=== PATIENT | female | born 1990 | race African-American/Black ===

== ENCOUNTER 2017-09-24 16:11 | Emergency (ER) | payer OTHER ==
[~2017-09-24] VITALS: Ht 185.4 cm; Wt 67.0 kg
[2017-09-24 16:46] VITALS: BP 124/76; PULSE 66; TEMP 98; O2SAT 100
--- NOTE | 2017-09-24 17:24 | PD ---
History of Present Illness Chief Complaint: Psychiatric Symptoms Time Seen by Provider: 17:00 Travel History International Travel<30 Days: No Contact w/Intl Traveler<30days: No Known affected area: No Legal Status Legal Status: Involuntary Christopher Act Signed By: Christopher Act Comment: Pete Spears MD History of Present Illness: 26 year old,single, female with no reported psychiatric history presents as a transfer from [facility] on an involuntary status. The Christopher act alleges that the patient was found running in the [facility] naked. Patient provides the following account of events. On she left [facility] after she had an argument with her sister whom she had been living with. She took a plane to [place] where she is originally from. After arriving in [place] she spent a day "wandering around the airport trying to figure out what I wanted to do and to get my head straight. I then decided to walk home. While walking I began to feel panicky and felt like I was in danger so I ran into the white and while in the white something told me to drop everything. Saw I put my purse and phone down and I took my clothes off. I then felt better." Patient denies any previous psychiatric history. She denies any use of any substances. Patient is seen in [facility]. She is alert, oriented, dressed in hospital [facility]. Her speech is somewhat circumstantial and overinclusive. Not pressured. She denies any hallucinations, denies any delusions or paranoia. She denies any suicidal or homicidal ideation, intent or plan her mood is rather euthymic. She does not appear to be concerned with her previous actions or the fact that she is here now in this hospital under a Christopher act. Telephone call to her mother Pushpa at [phone] to obtain collateral. No answer. Telephone call to her sister at [phone]. No answer. Generic message left on both to call [facility]. Patient's mother returned my call at [phone]. Mother states that the patient has never had any previous episodes and verified that indeed patient had been living in [place]. She spoke with her during the week and patient presented no unusual behaviors. Mother is out of the country but she will have her oldest son Marybeth pick the patient up if she is discharged. Remarks Frankie seen again on September 25, 2017 . Patient slept last night. This morning she is alert, oriented. Speech is clear and logical. Decreased circumstantiality. I met with patient's brother, Marybeth who is here to bring frankie home. He has spoken with his mother who is returning on Tuesday. He tells me that the patient appears to him to be at baseline. He has no concerns for her . I have instructed the patient and family to seek psychiatric care if any symptoms return including lack of sleep. The patient is not psychotic, not manic. No suicidal or homicidal ideation, intent or plan. She has a safe discharge plan at this time. The BA is lifted. PFSH Past Medical History ?: Not Psychiatric History Psychiatric History Hx Psychiatric Treatment: Denies any previous History of Inpatient Treatment: No Guns or firearms in home: No Social History Born and raised in [place]. Completed a master's degree in social work [place] [employer] [place]. Hx Alcohol Use: No Hx Tobacco Use: No Hx Substance Use: No Hx of Substance Use Treatment: No Allergies-Medications (Allergen,Severity, Reaction): Coded Allergies: No Known Allergies (Verified Allergy, Unknown, 09/25/17) Review of Systems Psychiatric: DENIES: Anxiety, Confusion, Mood changes, Depression, Hallucinations, Agitation, Suicidal Ideation, Homicidal Ideation, Delusions Except as stated in HPI: all other systems reviewed are Neg Mental Status Examination Appearance: Appropriate Consciousness: Alert Orientation: x4 Motor Activity: Normal gait Speech: Other (Overinclusive) Language: Adequate Fund of Knowledge: Adequate Attention and Concentration: Adequate Memory: Unremarkable Affect: Appropriate Thought Process & Associations: Intact, Logical Thought Content: Appropriate Hallucination Type: None Delusion Type: None Suicidal Ideation: No Suicidal Plan: No Suicidal Intention: No Homicidal Ideation: No Homicidal Plan: No Homicidal Intention: No Insight: Poor Judgment: Impulsive MDM Medical Decision Making Medical Record Reviewed: Yes Assessment/Plan 26-year-old female with no reported psychiatric history, no history of substance use, who is brought in under Christopher act after she was found walking around naked. The patient at this present time denies any hallucinations, no delusions and no nicola the patient appears to have little concern with her behavior and the severity or the seriousness of her actions. I have contacted her mother who is states that there is no previous psychiatric history previous we will monitor the patient overnight for any further behavioral dysregulation. To be assessed in the morning for disposition. Remains under the Christopher act. Orders Orders Diet Regular Basic (09/24/17 Dinner) Results Vital Signs Date Time Temp Pulse Resp B/P (MAP) Pulse Ox O2 Delivery O2 Flow Rate FiO2 09/24/17 16:46 98.0 66 124/76 (92) 100 Diagnosis Primary Impression: Psychosis Psychiatrically Cleared: Yes Prescriptions Unable to Obtain Active Prescriptions or Reported Meds Disposition: 01 DISCHARGE HOME Condition: Stable Problem Qualifiers Primary Impression: Psychosis Qualified Codes: F28 - Other psychotic disorder not due to a substance or known physiological condition Patricia Vazquez September 24, 2017 17:24
--- NOTE | 2017-09-24 17:34 | PD ---
HPI Chief Complaint: Psychiatric Symptoms Time Seen by Provider: 17:08 Travel History International Travel<30 days: No Contact w/Intl Traveler<30days: No Traveled to known affect area: No History of Present Illness HPI 26-year-old female that presents to the ED under a Christopher act for evaluation of psychiatric illness. Patient was Ashwin acted in a different hospital. Patient apparently was found by police to be on the [place] naked and acting somewhat bizarre. Patient denies any medical history. No medical issues. Per patient she takes no medications but when asked if she does any drugs or alcohol she states that occasionally. She would not tell me to which one. She appears to be interacting with internal stimuli during my examination of this appeared to be somewhat manic. History is a little bit limited because of this. Apparently she currently goes to school in [place] and came to [place] recently for unclear reasons and developed this episode. Per nurse report and medical records patient has no medical issues. Unclear as to the length of time of symptoms. Per patient M Ashwin act apparently "something "told her to get her clothes off. She denies suicidal or homicidal ideation. PFSH Past Medical History ?: Not Social History Alcohol Use: Yes Tobacco Use: No Substance Use: No Review of Systems ROS Limitations: Psychotic Except as stated in HPI: all other systems reviewed are Neg Physical Exam Exam Limitations: Psychotic Narrative GENERAL: SKIN: Warm and dry. HEAD: Atraumatic. Normocephalic. EYES: Pupils equal and round. No scleral icterus. No injection or drainage. ENT: No nasal bleeding or discharge. Mucous membranes pink and moist. Tongue is midline. No uvula deviation. NECK: Trachea midline. No JVD. CARDIOVASCULAR: Regular rate and rhythm. No murmurs, S3, S4. RESPIRATORY: No accessory muscle use. Clear to auscultation. Breath sounds equal bilaterally. GASTROINTESTINAL: Abdomen soft, non-tender, nondistended. Hepatic and splenic margins not palpable. MUSCULOSKELETAL: Extremities without clubbing, cyanosis, or edema. No obvious deformities. Full range of motion of the upper and lower extremities bilaterally. 2+ pulses bilaterally. NEUROLOGICAL: Awake and alert. No obvious cranial nerve deficits. Motor grossly within normal limits. Five out of 5 muscle strength in the arms and legs. Normal speech. PSYCHIATRIC: Possibly psychotic mood and affect; insight and judgment minimal Data Data Last Documented VS Vital Signs Date Time Temp Pulse Resp B/P (MAP) Pulse Ox O2 Delivery O2 Flow Rate FiO2 09/24/17 16:46 98.0 66 124/76 (92) 100 Orders Orders Diet Regular Basic (09/24/17 Dinner) MDM Medical Decision Making Medical Screen Exam Complete: Yes Emergency Medical Condition: Yes Medical Record Reviewed: Yes Differential Diagnosis Depression versus suicidal ideation versus anxiety versus adjustment disorder versus mood disorder versus bipolar disorder versus schizophrenia versus paranoid disorder versus psychosis versus substance abuse versus alcohol abuse versus alcohol induced psychosis versus homicidality addition versus cutting versus personality disorder Narrative Course 26-year-old female that presents to the ED for evaluation of psych. Patient was properly examined and was found to have signs and symptoms consistent with psychiatric illness. No significant medical distress. Labs were already done a different facility. Review the medical records and there is no sign of acute disease. Patient will be medically clear. Okay to be seen by psych. Mental health screening was discussed with the patient. Diagnosis Primary Impression: Psychosis Qualified Codes: F28 - Other psychotic disorder not due to a substance or known physiological condition Lazarus Espinoza September 24, 2017 17:34
[2017-09-24 18:33] VITALS: BP 137/64; PULSE 62; TEMP 97.9; O2SAT 100
[2017-09-24 22:37] VITALS: BP 115/63; PULSE 90; RESP 18; TEMP 98.3; O2SAT 100
[2017-09-25 06:38] VITALS: BP 119/68; PULSE 79; RESP 18; TEMP 98.4; O2SAT 100
--- NOTE | 2017-09-25 12:07 | PD ---
Physical Exam Date Seen by Provider: September 25, 2017 Narrative 26-year-old female presents to the ED as a Christopher Act. She was evaluated and medically cleared to see psych. Psych evaluated and has lifted the Christopher Act. She is cleared to discharge home with brother. Denies SI/HI. Data Data Last Documented VS Vital Signs Date Time Temp Pulse Resp B/P (MAP) Pulse Ox O2 Delivery O2 Flow Rate FiO2 09/25/17 12:38 09/25/17 06:38 98.4 79 18 100 Room Air Orders Orders Diet Regular Basic (09/24/17 Dinner) Ed Urine Pregnancytest Poc (09/24/17 21:55) Diet Regular Basic (09/25/17 Breakfast) Ed Discharge Order (09/25/17 12:07) MDM Supervised Visit with ZAC: No Diagnosis Primary Impression: Psychosis Qualified Codes: F28 - Other psychotic disorder not due to a substance or known physiological condition Scripts Unable to Obtain Active Prescriptions or Reported Meds Disposition: 01 DISCHARGE HOME Condition: Stable Corrine Pace September 25, 2017 12:07
== END 2017-09-25 12:45 | disposition home or self-care (01) ==
LOC: NEPJ 16:11
DX: F28 Other psychotic disorder not due to a substance or known physiological condition (principal)
CPT/HCPCS: 84703; 99283